=== PATIENT | male | born 1965 | race Caucasian/White ===

== ENCOUNTER 2020-10-15 07:42 | Outpatient (CLI) | payer OTHER, SELFPAY ==
--- NOTE | 2020-11-15 19:39 | WPDHOMESLEEP ---
Sleep Study - Home Unattended Date of Study: 10/15/20 Ordering Provider: ALECIA Sheffield Interpreting Provider: Claire Maddox MD Home Sleep Study Type: Watch PAT Height: 1.78 m Weight: 100.698 kg Body Mass Index: 31.8 Neck Circumference (inches): 16.5 [facility]: 9 Reason for Sleep Study Loud snoring, witnessed apnea especially when he is on his back Sleep History Yousuf Barrett is a 55-year-old man who routinely wakes up throughout the night. His tells him that his snoring is severe and she has witnessed apneic episodes. This is worse when he drinks alcohol. This does not happen every night. His snoring is worse when he is on his back. His snoring is frequent and it is frequently loud enough that she complains about it. He does not awaken at night with heartburn, belching or coughing. He does not awaken from sleep feeling short of breath. He occasionally has trouble sleeping with a cold. He never wakes up gasping for breath at night. He rarely has breathing problems at night observed by others. He rarely sweats excessively at night. He occasionally notices his heart pounding or beating irregularly at night. He occasionally falls asleep during the day. He never falls asleep involuntarily or while driving. He does not fall asleep while exerting physical effort. He does not have loss of muscle tone was strong emotion. He rarely has daytime difficulties due to excessive sleepiness. He does not feel paralyzed on waking or falling asleep. He rarely has vivid dreamlike scenes upon awakening or falling asleep. He is never afraid to go to sleep. He rarely has nightmares. He occasionally remembers his dreams. He frequently has racing thoughts. He rarely feels sad or depressed. He frequently has anxiety. He does not have muscular tension. He rarely notices parts of his body jerking. He does not kick during the night. He rarely has crawling and aching feelings in his legs. He rarely has any kind of leg pain at night. He occasionally has morning jaw pain. He frequently grinds his teeth during sleep, and wears a mouth guard for this reason. He rarely is bothered by pain during the day. He never is awakened by pain at night. He occasionally wakes up feeling stiff in the morning with sore achy muscles. He rarely wakes up with pain in the neck and spine. He has concentration difficulties. He feels unable to relax. Normal bedtime is 10:30 p.m. taking less than 30 minutes to fall asleep, typically waking 2-3 times at night for less than 1 minute. While he is awake, he will check the clock and wonder if he should get up. He wakes in the morning at 5-530 a.m.. The weekend is different, going to bed between 11:30 p.m. and midnight and waking between 6 and 6:30 a.m.. He estimates getting 5-6 hours of sleep at night. He usually has alcohol on the weekends but this is not every weekend. he often takes naps in the afternoon or evening. A short 10-15 minute nap may be refreshing. Most of the time he feels good in the morning. He does not have morning headaches. Habits: He never smoked tobacco. He does not drink much caffeine. He drinks alcohol, not every day but he may have 2 beverages or so when he does drink, usually on the weekends. No recreational drugs. [facility] Past Medical History Medical History (Updated 11/15/20 @ 19:57 by Claire Maddox MD) Anxiety Hyperlipidemia Hypertension Medications Medications: citalopram 10 mg atorvastatin 20 mg losartan 50 mg Sleep Procedure The sleep study was completed using WatchPAT a technically adequate device with seven channels: peripheral arterial tone, actigraphy, body position, snore, respiratory movement, pulse oximetry, sleep staging, and heart rate. Prior to using the device, the patient received verbal and written instructions for its application and was provided with the help desk phone number for additional telephonic instruction with 24-hour availability of [employer]
[2020-11-15 20:04] VITALS: BMI 31.8
== END 2020-10-15 07:43 | disposition home or self-care (01) ==
LOC: ANHCSM 07:46
PROVIDERS: PCP Family Medicine; Visit Provider Physician Assistant
DX: G47.33 Obstructive sleep apnea (adult) (pediatric) (principal); E66.9 Obesity, unspecified; Z68.31 Body mass index [BMI] 31.0-31.9, adult
CPT/HCPCS: 95800

== ENCOUNTER → 2023-09-14 08:05 | Outpatient (CLI) | payer OTHER, SELFPAY ==
--- NOTE | ~2023-09-14 | US_ITS ---
Abdominal Sonogram: Real-time sonographic imaging of the abdomen was performed. Clinical History: Abnormal serum enzyme levels Findings: The liver appears echogenic, with no evidence of mass lesion or bile duct dilatation. Main portal vein demonstrates normal direction of flow. The spleen is normal in size without evidence of focal lesion. The gallbladder is well distended, and appears normal with no evidence of gallstone or wall thickening. The common bile duct measures 3 mm. The visualized pancreas, aorta, and IVC are un remarkable. The right kidney measures 12.1 cm in length and the left kidney measures 12.2 cm. There is no hydronephrosis or renal calculus. Impression: Diffuse fatty infiltration of liver. Reviewed, dictated and finalized at location [facility] [employer] Impression: Diffuse fatty infiltration of liver.
== END ==
PROVIDERS: PCP Physician Assistant; Visit Provider Physician Assistant
DX: R74.8 Abnormal levels of other serum enzymes (principal); K76.0 Fatty (change of) liver, not elsewhere classified
CPT/HCPCS: 76700